=== PATIENT | female | born 1995 | race Caucasian/White ===

== ENCOUNTER 2024-06-28 15:12 | Outpatient (AMB) | payer MEDICAID, SELFPAY ==
[2024-06-28 15:29] VITALS: BP 110/71; PULSE 85; RESP 16; TEMP 36.8; O2SAT 95; BMI 46.1
--- NOTE | 2024-06-28 15:29 | GYNCLNT_ITS ---
Vital Signs 06/28/24 15:29 Height 1.55 m Height Method Stated Weight 110.79 kg Weight Measurement Method Standing Scale BMI 46.1 BP 110/71 Blood Pressure Source Automatic Cuff Blood Pressure Location Left Upper Arm Position Sitting Respiration 16 Pulse 85 Pulse Source Monitor Temp 98.3 F Temp Source Oral Pulse Oximetry (%) 95 Oxygen Delivery Method Room Air Allergies/Home Meds Allergies & Medications Allergies hydrocodone Allergy (Unknown, Verified 06/28/24 15:31) RASH TAPE Allergy (Unknown, Uncoded 06/28/24 15:31) Rash Medication Reconciliation ibuprofen 600 mg tablet 1 tab PO Q8HR PRN pain #30 tabs 07/30/16 [Rx Confirmed 06/28/24] albuterol sulfate 90 mcg/actuation aerosol inhaler 2 puff inhalation Q4H PRN shortness of breath or wheezing #18 grams 09/30/21 [Rx Confirmed 06/28/24] benzonatate 100 mg capsule 100 mg PO Q6H PRN cough #30 caps 09/30/21 [Rx Confirmed 06/28/24] codeine 10 mg-guaifenesin 100 mg/5 mL oral liquid 5 ml PO Q4H PRN cough #200 mL 09/30/21 [Rx Confirmed 06/28/24] hydrocodone 5 mg-acetaminophen 325 mg tablet 0.5 tab PO BID #10 tabs 12/04/21 [Rx Confirmed 06/28/24] Intake Visit Data Collection New Patient or Established: Established Patient (seen at [facility] within 3 years) Reason for Visit:: Request for sterilization (double salpingectomy) Seen by Clinical Staff ONLY (RN/MA): No Do You Feel Safe at Home: Yes Authorities Contacted: N/A PCP or OBGYN visit in last 3 months: No Hx Now: No Are you currently on any form of Control: No Pain Present Currently: No Pain Scale Used: Corcoran-García/Numerical Pain scale:: 0 Smoking Status Smoking Status: Never smoker [employer] 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 1. Little interest or pleasure in doing things: not at all 2. Feeling down, depressed, or hopeless: not at all Total score: 0 PHQ-9 3. Trouble falling or staying asleep, or sleeping too much: Not at all 4. Feeling tired or having little energy: Not at all 5. Poor appetite or overeating: Not at all 6. Feeling bad about yourself - or that you are a failure or have let yourself or your family down: Not at all 7. Trouble concentrating on things, such as reading the newspaper or watching television: Not at all 8. Moving or speaking so slowly that other people could have noticed? - Or the opposite - being so fidgety or restless that you have been moving around a lot more than usual: not at all 9. Thoughts that you would be better off or of hurting yourself in some way: Not at all Total score: 0 Source: Developed by Drs. Michael Guerra, Gloria Hogan, Mikel Harding and colleagues, with an educational priti from [employer]. Depression screen completed yes Social History Tobacco History Smoking Status: Never smoker Domestic Abuse History Do You Feel Safe at Home: Yes Past Medical History Past Medical History Have you ever been diagnosed with any of the following: Neurological Problems Migraine: Yes Psychologic Problems Depression: Yes History of Present Illness HPI Narrative Patient is seeking a tubal ligation (double salpingectomy). The patient, Phyllis Espinoza, presents for follow-up regarding a planned bilateral salpingectomy. She reports having previously consulted with the provider at [facility] and completed the consent form for the procedure approximately two months ago. The patient states she was then referred to Dr. Tenorio, who declined to perform the procedure, citing it was not an emergency. The patient mentions that the facility where Dr. Tenorio works appears to be prioritizing patients. She is now seeking to proceed with the bilateral salpingectomy at this clinic. 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 Review of Systems Review of Systems Systems Reviewed: All systems reviewed, normal except as documented Exam General Limitations: no limitations General Appearance: alert, in no apparent distress, comfortable, cooperative, healthy appearing, well developed and well groomed Head Head exam: atraumatic, normocephalic and normal inspection Eye Eye exam: Present normal appearance, PERRL and EOMI ENT ENT exam: Present normal exam, normal oropharynx and mucous membranes moist Neck Neck exam: Present normal inspection, full ROM and trachea midline Chest Chest inspection: Present normal inspection and symmetric chest wall rise Resp Respiratory exam: Present normal lung sounds bilaterally Card Cardiovascular exam: Present regular rate, normal rhythm and normal heart sounds Abdominal Abdominal exam: Present soft and normal bowel sounds Extremities Extremities exam: Present normal inspection and full ROM Back Back exam: Present normal inspection and full ROM Neuro Neurological exam: Present alert, oriented X3 and CN II-XII intact Psych Psychiatric exam: Present normal affect and normal mood Skin Skin exam: Present warm, dry, intact and normal color Assessment & Plan Diagnosis / Problem List (1) Encounter for sterilization: Status: Acute Plan: Desire for permanent contraception The patient was counseled regarding permanent sterilization as a method of contraception. The discussion included the surgical options available, primarily laparoscopic bilateral tubal ligation or salpingectomy, and the mechanism by which these procedures provide irreversible contraception. The risks, benefits, and alternatives (R/B/A) were reviewed in detail. Benefits include a highly effective, hormone-free, permanent form of control. Risks include bleeding, infection, injury to surrounding structures, anesthesia complications, and potential regret, especially in patients under 30 or those uncertain about future childbearing. Alternatives discussed included long-acting reversible contraception (LARC) such as intrauterine devices and contraceptive implants, which are reversible and also highly effective. The patient demonstrated understanding, asked appropriate questions, and expressed a clear and consistent desire for permanent sterilization. It was emphasized that this is a non- reversible procedure, and informed consent will be obtained prior to scheduling surgery. Shared decision-making was utilized to ensure alignment with the patient?s reproductive goals. Patient presents for follow-up regarding a previously planned bilateral salpingectomy for permanent contraception. She had signed a consent form for the procedure approximately 2 months ago at another facility, but was unable to proceed there due to prioritization of patients. The patient is now seeking to have the procedure performed at this clinic. - Utilize existing consent form (if within 180 days and patient can provide a co py) - Initiate insurance authorization process - Schedule outpatient surgery (potentially next week, pending insurance approval) - Provide pre-operative instructions: * Arrive 2 hours before procedure * Procedure duration: approximately 30 minutes * Post-procedure observation: 1 hour - Discuss post-operative expectations: * 1 day of bed rest * 1 day of light duties * Return to normal activities thereafter - Inform patient about surgical approach: * Laparoscopic procedure with 3 small incisions (one in umbilicus, two on sides) - Schedule follow-up visit as needed Additional Plan Follow Up: 2 Weeks Office Procedures OB Clinic LOC & Office Proc's Nursing/Assessment Patient Status: Established Patient OB Clinic Nursing Assessment: Medication Reconciliation, Update PMH in EMR and Vital Signs OB Clinic Coordination of Care: Complex Care and Chronic Disease 1-5, Consent,records obtained, informed consent, Education Simp Pt/Fam, Lab and Imaging orders, Results/Orders obtained and Staff clarify orders Established Patient Charge Established Patient Point Assignment: 105 Established Patient Point Charge: EP Level 3 (80-115)
== END 2024-06-28 15:39 | disposition home or self-care (01) ==
LOC: HODSOBC 15:12
PROVIDERS: PCP Family Medicine; Referring Provider Family Medicine; Supervising Provider Obstetrics & Gynecology; Visit Provider Obstetrics & Gynecology
DX: Z30.2 Encounter for sterilization (principal)
CPT/HCPCS: 99213; G0463

== ENCOUNTER 2024-08-31 15:01 | Outpatient (AMB) | payer MEDICAID, SELFPAY ==
[2024-08-31 15:20] VITALS: BP 112/77; PULSE 56; RESP 17; TEMP 36.8; O2SAT 97; BMI 46.3
--- NOTE | 2024-08-31 15:20 | GYNCLNT_ITS ---
Vital Signs 08/31/24 15:20 Height 1.55 m Height Method Stated Weight 111.244 kg Weight Measurement Method Standing Scale BMI 46.3 BP 112/77 Blood Pressure Source Automatic Cuff Blood Pressure Location Right Upper Arm Position Sitting Respiration 17 Pulse 56 L Pulse Source Monitor Temp 98.3 F Temp Source Temporal Artery Scan Pulse Oximetry (%) 97 Oxygen Delivery Method Room Air Allergies/Home Meds Allergies & Medications Allergies hydrocodone Allergy (Unknown, Verified 08/31/24 15:21) RASH Medication Reconciliation No Known Home Medications 08/31/24 [History Confirmed 08/31/24] Intake Visit Data Collection New Patient or Established: Established Patient (seen at [facility] within 3 years) Reason for Visit:: PRE-OP Seen by Clinical Staff ONLY (RN/MA): No 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: No Do You Feel Safe at Home: Yes Authorities Contacted: N/A PCP or OBGYN visit in last 3 months: Yes Date of Last PCP or OBGYN visit: 06/28/24 Hx Now: No Are you currently on any form of Control: No Pain Present Currently: No Pain Scale Used: Corcoran-García/Numerical Pain scale:: 0 Smoking Status 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 1. Little interest or pleasure in doing things: not at all 2. Feeling down, depressed, or hopeless: not at all Total score: 0 PHQ-9 3. Trouble falling or staying asleep, or sleeping too much: Not at all 4. Feeling tired or having little energy: Not at all 5. Poor appetite or overeating: Not at all 6. Feeling bad about yourself - or that you are a failure or have let yourself or your family down: Not at all 7. Trouble concentrating on things, such as reading the newspaper or watching television: Not at all 8. Moving or speaking so slowly that other people could have noticed? - Or the opposite - being so fidgety or restless that you have been moving around a lot more than usual: not at all 9. Thoughts that you would be better off or of hurting yourself in some way: Not at all Total score: 0 If you checked off any problems, how difficult have these problems made it for you to do your work, take care of things at home, or get along with other people?: not difficult at all Source: Developed by Drs. Michael Guerra, Gloria Hogan, Mikel Harding and colleagues, with an educational priti from [employer]. Depression screen completed yes Social History Living Situation History Housing: House Tobacco History Smoking Status: Never smoker Alcohol History Alcohol Intake: Never Domestic Abuse History Do You Feel Safe at Home: Yes History of Present Illness HPI Narrative Phyllis Espinoza, a 29-year-old female, presents for a preoperative visit prior to scheduled laparoscopic surgical sterilization by bilateral self-injection tomorrow. The patient has completed all necessary documentation, including signing a PM330 at [facility], and insurance authorization has been verified and faxed to the hospital. The patient inquires about the duration of the procedure and recovery time. She is informed that the actual surgery takes approximately 15-20 minutes, and she should be home by 9:30 AM. Regarding recovery, the patient is advised that she may feel sleepy for a few hours post-anesthesia, followed by soreness similar to menstrual cramps. The majority of symptoms are expected to subside within 24 to 48 hours, with a recommendation to avoid lifting, exercising, and sexual intercourse until Thursday. The patient mentions a history of ovarian cysts, which were previously discussed at [facility]. She is reassured that during the laparoscopic procedure, the surgeon will survey the area and address any visible cysts if present. The patient expresses curiosity about the possibility of keeping her fallopian tubes post-procedure, which will be addressed with the hospital staff on the day of surgery. Medical History: - Ovarian cysts Exam General General Appearance: alert, in no apparent distress and healthy appearing Head Head exam: atraumatic Neck Neck exam: Present normal inspection and trachea midline Chest Chest inspection: Present normal inspection and symmetric chest wall rise External exam: Present normal external exam; Absent tenderness Neuro Neurological exam: Present oriented X3 Psych Psychiatric exam: Present normal affect and normal mood Office Procedures OB Clinic LOC & Office Proc's Nursing/Assessment Patient Status: Established Patient OB Clinic Nursing Assessment: Medication Reconciliation, Update PMH in EMR and Vital Signs OB Clinic Coordination of Care: Complex Care and Chronic Disease 1-5, Consent,records obtained, informed consent, Education Simp Pt/Fam and Staff clarify orders Established Patient Charge Established Patient Point Assignment: 85 Established Patient Point Charge: EP Level 3 (80-115) Assessment & Plan Diagnosis / Problem List (1) Encounter for sterilization: Status: Acute Plan Preoperative Evaluation for Laparoscopic Surgical Sterilization: - Scheduled for laparoscopic surgical sterilization by bilateral self-injection tomorrow at 7:30 AM. - Completed necessary preoperative requirements, including signing PM330 form at [facility]. - Insurance authorization and all documentation verified and faxed to the hospital. - Scheduled preoperative appointment with preopulation nurse. Plan: - Proceed with scheduled laparoscopic surgical sterilization tomorrow at 7:30 AM. - Estimated procedure duration: 15-20 minutes. - Anticipated discharge time: 9:30 AM. - Postoperative instructions: * Expect sleepiness for a few hours post-anesthesia. * Anticipate soreness similar to menstrual cramps for approximately 24 hours. * Avoid lifting, exercising, and sexual intercourse until Thursday. * Resume normal activities by Thursday. - Intraoperative plan: * Survey abdominal cavity with camera. * If ovarian cysts are visualized, plan to remove them during the procedure. - Discuss possibility of retaining fallopian tubes with nursing staff in the morning, considering hospital policies and preservation requirements. History of Ovarian Cysts: - Documented history of ovarian cysts from previous records at [facility]. - Plan to survey for presence of ovarian cysts intraoperatively. - If cysts are identified, plan to remove them during the sterilization procedure.
== END 2024-08-31 15:29 | disposition home or self-care (01) ==
LOC: HODSOBC 15:01
PROVIDERS: PCP Obstetrics & Gynecology; Referring Provider Obstetrics & Gynecology; Supervising Provider Obstetrics & Gynecology; Visit Provider Obstetrics & Gynecology
DX: Z30.2 Encounter for sterilization (principal); Z87.42 Personal history of other diseases of the female genital tract
CPT/HCPCS: 99213; G0463

== ENCOUNTER 2024-09-01 05:35 | Day surgery (SDC) | payer MEDICAID, SELFPAY ==
[2024-08-31 12:11] VITALS: BMI 46.5
[2024-08-31 13:27] LABS: Basophils # (Auto) 0.1 Thou/mm3 (0.0-0.2); Basophils % (Auto) 1 % (0-2.5); Eosinophils # (Auto) 0.2 Thou/mm3 (0.0-0.5); Eosinophils % (Auto) 2 % (0-10); Hematocrit 40.6 % (36.0-46.0); Hemoglobin 14.2 g/dL (12.0-16.0); Immature Granulocytes % (Auto) 0 % (0-0); Immature Granulocytes Auto 0.03 Thou/mm3 (0.00-0.00); Lymphocytes # (Auto) 3.9 Thou/mm3 (1.0-4.8); Lymphocytes % (Auto) 38 % (10-50); Mean Corpuscular Hemoglobin 30.1 pg (25.0-35.0); Mean Corpuscular Volume 86 fL (80-100); Monocytes # (Auto) 0.8 Thou/mm3 (0.0-0.8); Monocytes % (Auto) 7 % (0-12); Neutrophils # (Auto) 5.3 Thou/mm3 (1.8-7.7); Neutrophils % (Auto) 52 % (37-80); Nucleated Red Blood Cell % 0 /100 WBC (0); Platelet Count 338 Thou/mm3 (140-440); RDW Standard Deviation 38.8 fL (36.4-46.3); Red Blood Count 4.71 Miln/mm3 (4.00-5.20); White Blood Count 10.3 Thou/mm3 (3.6-11.0)
[2024-08-31 13:36] LABS: Alanine Aminotransferase 15 U/L (10-49); Albumin, Serum 4.4 gm/dL (3.5-5.0); Albumin/Globulin Ratio 1.6 (1.2-2.2); Alkaline Phosphatase 63 U/L (46-116); Anion Gap 12 (7-16); Aspartate Amino Transferase 19 U/L (0-34); BUN/Creatinine Ratio 14 Ratio (12-20); Bilirubin,Total 0.4 mg/dL (0.3-1.2); Blood Urea Nitrogen 10 mg/dL (9-23); Calcium 8.7 mg/dL (8.3-10.6); Calcium (Corrected) 8.7 mg/dL (8.5-10.1); Carbon Dioxide 26.5 mMol/L (20.0-31.0); Chloride 105 mMol/L (98-107); Creatinine (Component) 0.7 mg/dL (0.6-1.3); Globulin 2.7 gm/dL (2.3-3.5); Glucose 90 mg/dL (74-106); Osmolality,Calculated 283 (275-295); Potassium 3.9 mMol/L (3.4-5.1); Sodium 143 mMol/L (136-145); Total Protein 7.1 gm/dL (5.7-8.2); eGFR > 60 See Note
[2024-08-31 13:37] LABS: HCG,Qualitative Serum Negative
[2024-09-01] VITALS (17 sets, daily range): BP systolic 94–130; BP diastolic 52–79; PULSE 59–92; RESP 12–19; TEMP 36.2–37.1; O2SAT 95–99; BMI 45.1
[2024-09-01] MEDS: RINGERS LACTATED 1000 ML 1,000 ML 20 ML IV (06:59)
--- NOTE | 2024-09-01 09:13 | SUR.PHASEI ---
pt received from OR in recovery bay 1. pt asleep but responds to voice, breathing unlabored on oxymask 8l. v/s stable. pt dressing to lower abd dermabond x3 ports cdi. report received from Meron MARISCAL and Martha AVILES.
--- NOTE | 2024-09-01 09:30 | SUR.PHASEI ---
pt able to tolerate oral fluids without difficulty swallowing or vomiting.
[2024-09-01] MEDS: ONDANSETRON INJ 2 MG/ML INJ 2 ML 4 MG IV (09:36)
[2024-09-01] MEDS: METOCLOPRAMIDE INJ 5 MG/ML VIAL 2 ML 10 MG IVP (10:39)
--- NOTE | 2024-09-01 11:58 | PD.GYNPROC ---
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 Identity was confirmed by double identifiers and she was placed on the operating table.? General anesthesia was administered and airway was secured.? Patient was now positioned in the dorsal lithotomy position in Giovanni stirrups.? The abdomen and perineum were prepped in the usual sterile fashion and sterile drapes were applied.? The bladder was emptied using a straight catheter.? A sponge stick was placed in the vagina for uterine manipulation.? Attention was now turned to the patient's abdomen.? A 5 mm incision was made at the base of the umbilicus using a scalpel.? Laparoscopic entry was accomplished under direct visualization using Zuberance laparoscopic trocar.? Once intra-abdominal placement was confirmed pneumoperitoneum was insufflated to 15 cm.? The camera was now introduced into the abdomen and a preliminary survey was performed.? The uterus and both adnexa were noted to be within normal limits.? Another overall survey of the upper abdomen was performed and no gross abnormalities were noted.? A pair of accessory ports were placed 2 cm superior and medial to the ASIS bilaterally.? The Ligasure was used to perform a salpingectomy in the usual fashion. The dissection sites were now observed to note satisfactory hemostasis.? All instruments were now withdrawn.? Pneumoperitoneum was desufflated.? The laparoscopic ports were removed.? The skin was now closed using 4-0 Monocryl in a subcuticular fashion.? The patient's skin was now cleaned, sterile dressings were applied.? Patient was undraped, and general anesthesia was reversed and she was transferred to the recovery room in a stable and awake condition. The patient tolerated the entire procedure well.? All instrument, sponge and lap counts are correct x2.? No complications were encountered. Estimated blood loss (ml): 10 Complications: none Surgical staff Operation Date: 09/01/24 07:30 Case Staff Anesthesiologist: Cain Richard RN First Assistant: Federico Gould Diagnosis Discharge Diagnosis (1) Encounter for sterilization: Status: Acute Problem List Completed Was Problem List Reviewed/Reconciled?: Yes
--- NOTE | 2024-09-01 12:38 | SUR.PHASEII ---
pt awake and alert, breathing unlabored on room air. v/s stable. pt dressing to abd dermabond x3 cdi. pt able to ambulate to wheelchair with steady gait. d/c instructions given with friend Jerri in room, all questions answered. pt d/c via wheelchair with all belongings.
== END 2024-09-01 12:38 | disposition home or self-care (01) ==
PROVIDERS: PCP Family Medicine; Referring Provider Obstetrics & Gynecology; Visit Provider Obstetrics & Gynecology
PROC: (CPT 58720; principal; 2024-09-01 07:30)
DX: Z30.2 Encounter for sterilization (principal)
CPT/HCPCS: 58661; 36415; 80053; 84703; 85025; 86850; 86900; 86901; A4217; A4649; J0131; J1100; J2250; J2405; J2704; J2765; J3010; J3490; J7120